=== PATIENT | female | born 1995 | race Two or more races ===

== ENCOUNTER 2021-10-17 15:13 | Emergency (ER) | payer MEDICAID, OTHER ==
[~2021-10-17] VITALS: Ht 149.9 cm; Wt 61.2 kg
--- NOTE | 2021-10-17 15:15 | NUR ---
25 JACQUELINE GUILLEN CAME BY PRAJAELYN FOR HAD SEIZURE AT HOME ASLEEPY RESPIRATION SPONT AND EASY NO ACIVE NO BETING IN HERE TONG , SEIZURE PRECTION APPLED IN BOTH CLOSLY OBSEVE PT
--- NOTE | 2021-10-17 15:30 | NUR ---
PT WAS INCONTENT AT HOME AND ASLEEPY NO SOB OR DISTRESS
--- NOTE | 2021-10-17 16:00 | NUR ---
RESTING AND ASLEEPY PT CONDITION STABLE
--- NOTE | 2021-10-17 17:00 | NUR ---
EXAMIN BY DR. MODI
[2021-10-17 17:28] LABS: HEMATOCRIT 40 % (33-45); HEMOGLOBIN 13.9 g/dL (11.5-14.8); MEAN CORPUSCULAR HGB CONC 35 g/dl (31.0-36.0); MEAN CORPUSCULAR VOLUME 97 fL (82-100); NEUTROPHILS % (AUTO) 93.7 % (43.0-81.0); PLATELET COUNT (AUTO) 221 K/uL (150-450); RED BLOOD CELL COUNT(AUTO) 4.14 MIL/uL (4.0-5.2); WHITE BLOOD COUNT (AUTO) 10.1 K/uL (4.3-11.0)
[2021-10-17 17:29] LABS: BASOPHILS % (AUTO) 0.3 % (0.0-2.0); LYMPHOCYTES # (AUTO) 0.2 K/uL (0.8-4.8); LYMPHOCYTES % (AUTO) 1.5 % (20.0-44.0); MONOCYTES # (AUTO) 0.5 K/uL (0.1-1.30); MONOCYTES % (AUTO) 4.5 % (2.0-12.0); NEUTROPHILS # (AUTO) 9.5 K/uL (1.8-8.9)
[2021-10-17 17:39] LABS: CALCIUM, SERUM 8.9 mg/dL (8.5-10.1); CREATININE 0.7 mg/dL (0.6-1.3); POTASSIUM 4.3 mmol/L (3.5-5.1)
--- NOTE | 2021-10-17 18:00 | NUR ---
BLOOD DROW BY LAB TACH UA SEND TO LAB RESTING AT THIS TIME
--- NOTE | 2021-10-17 18:45 | NUR ---
LINDSAY FOR LAB RESULT AND DISPO
--- NOTE | 2021-10-17 19:00 | NUR ---
LINDSAY FOR CT SCAN OF HEAD
--- NOTE | 2021-10-17 19:18 | NUR ---
HAND OFF ROSEANN ACEVEDO
--- NOTE | 2021-10-17 19:24 | NUR ---
RECEIVED REPORT FROM CORY ACEVEDO FOR JENNIFER
--- NOTE | 2021-10-17 19:26 | NUR ---
PT TAKEN FOR CT SCAN
--- NOTE | 2021-10-17 19:39 | NUR ---
PT BACK FROM CT SCAN, RECONNECTED TO MONITOR
--- NOTE | 2021-10-17 21:01 | NUR ---
XRAY AT BEDSIDE
--- NOTE | 2021-10-17 22:26 | NUR ---
IV removed. Catheter intact and site benign. Pressure and 4x4 applied to site. No bleeding noted.
--- NOTE | 2021-10-17 22:26 | NUR ---
Patient discharged to home in stable condition. Written and verbal after care instructions given. Patient verbalizes understanding of instruction.
[2021-10-17 22:31] VITALS: BP 132/70
== END 2021-10-17 22:31 | disposition home or self-care (01) ==
LOC: ER 15:58
DX: G40.909 Epilepsy, unspecified, not intractable, without status epilepticus (principal); R51.9 Headache, unspecified; M54.50 Low back pain, unspecified; Z86.69 Personal history of other diseases of the nervous system and sense organs
CPT/HCPCS: 36415; 70450-TC; 71045-TC; 80048-TC; 83735-TC; 84703-TC; 85025-TC; G0480